=== PATIENT | female | born 1985 | race Caucasian/White ===

== ENCOUNTER → 2016-10-15 | Day surgery (SDC) | payer BC ==
[2016-10-11 09:34] VITALS: Ht 160 cm; Wt 60.0 kg
[~2016-10-15] VITALS: Ht 160 cm; Wt 60.0 kg
[~2016-10-15] MED LIST: ACET-1256 PO; ASPI-390 PO; BCPILLS PO; LIDOCAINE HCL 2% 2 ML VIAL (20MG/ML) ONE; MIDAZOLAM HCL 1 MG/ML 2ML VIAL ONE; ONDANSETRON INJ 2 MG/ML 2 ML VIAL ONE; PROPOFOL IV EMULSION 10 MG/ML 20 ML VIAL IV ONE; PSYL48.59 PO; SODIUM CHLORIDE 0.9% 500ML 500 ML IV ONE
--- NOTE | 2016-10-15 09:53 | Endo History and Physical ---
History & Physical Date of Service: Oct 15, 2016. Chief Complaint: abdominal pain Referring Physician: Dr.Paul Perez History of Present Illness 31 yo CF who presents for colonoscopy secondary to LLQ abdominal pain. Past Surgical History Hx Cardiac Surgery: No Hx Internal Defibrillator: No Hx Pacemaker: No Hx Abdominal Surgery: No Hx of Implantable Prosthesis: No Hx Post-Op Nausea and Vomiting: No Hx Cancer Surgery: No Hx Thoracic Surgery: No Hx Orthopedic: No Hx Urinary Tract Surgery: No Family History IBD Social History Smoking Status: Never Smoker Hx Substance Use: No Hx Alcohol Use: Yes (OCC SOCIAL) Allergies Coded Allergies: No Known Allergies (Verified , 10/15/16) Current Medications Reported Home Medications Medications Dose Route/Sig Max Daily Dose Days Date Category Tylenol (Acetaminophen) 500 Mg Tab 1,000 Mg PO PRN 10/11/16 Reported Metamucil (Psyllium) 48.57 % Pow 1 Dose PO QAM 10/11/16 Reported Control Pills (Miscellaneous) Tab 1 Tab PO QAM 02/11/08 Reported Vital Signs Weight (Kilograms): 60 Height (Feet): 5 Height (Inches): 3 Date Time Temp Pulse Resp B/P Pulse Ox O2 Delivery O2 Flow Rate FiO2 10/15/16 09:32 36.7 70 16 109/52 100 Room Air Physical Exam General Appearance: WD/WN, no apparent distress Respiratory/Chest: Auscultation: breath sounds normal Cardiovascular: Heart Auscultation: RRR Abdomen: Bowel Sounds: normal Inspection & Palpation: soft, non-distended, no tenderness, guarding & rebound Assessment and Plan Assessment: 31 yo CF who presents for colonoscopy secondary to LLQ abdominal pain. Plan: Proceed with colonoscopy.
--- NOTE | 2016-10-15 10:48 | GI REPORT ---
Procedure Date: 10/15/2016 9:58 AM Procedure: Colonoscopy Indications: Abdominal pain in the left lower quadrant Medicines: Monitored Anesthesia Care Complications: No immediate complications. Estimated Blood Loss: Estimated blood loss: none. Procedure: Pre-Anesthesia Assessment: - Prior to the procedure, a History and Physical was performed, and patient medications and allergies were reviewed. The patient's tolerance of previous anesthesia was also reviewed. The risks and benefits of the procedure and the sedation options and risks were discussed with the patient. All questions were answered, and informed consent was obtained. Prior Anticoagulants: The patient has taken no previous anticoagulant or antiplatelet agents. [ASA Grade]. After reviewing the risks and benefits, the patient was deemed in satisfactory condition to undergo the procedure. After I obtained informed consent, the scope was passed under direct vision. Throughout the procedure, the patient's blood pressure, pulse, and oxygen saturations were monitored continuously. The scope was introduced through the anus and advanced to the terminal ileum. The colonoscopy was performed without difficulty. The patient tolerated the procedure well. The quality of the bowel preparation was good. The terminal ileum, ileocecal valve, appendiceal orifice, and rectum were photographed. Findings: Non-bleeding internal hemorrhoids were found during retroflexion. The hemorrhoids were small. Multiple biopsies were obtained with cold forceps for histology randomly in the sigmoid colon. Impression: - Non-bleeding internal hemorrhoids. - Multiple biopsies were obtained in the sigmoid colon. Recommendation: - Resume previous diet. - Continue present medications. - Repeat colonoscopy for surveillance based on pathology results. - Return to primary care physician as previously scheduled. Patrick Euceda DO 10/15/2016 10:47:29 AM This report has been signed electronically. Note Initiated On: 10/15/2016 9:58 AM
--- NOTE | 2016-10-15 10:49 | Discharge Instructions ---
Endoscopy Patient Instructions Date / Procedure(s) Performed Oct 15, 2016. Colonoscopy Allergy Information Coded Allergies: No Known Allergies (Verified , 10/15/16) Discharge Date / Findings Oct 15, 2016. Internal hemorrhoids Left colon biopsies Medication Instructions Stopped Medication(s): stopped Metamucil Saturday OK to resume all medications today as prescribed. Reported Home Medications Medications Dose Route/Sig Max Daily Dose Days Date Category Tylenol (Acetaminophen) 500 Mg Tab 1,000 Mg PO PRN 10/11/16 Reported Metamucil (Psyllium) 48.57 % Pow 1 Dose PO QAM 10/11/16 Reported Control Pills (Miscellaneous) Tab 1 Tab PO QAM 02/11/08 Reported Provider Instructions Activity Restrictions - No exercising or heavy lifting for 24 hours. - Do not drink alcohol the day of the procedure. - Do not drive a car or operate machinery until the day after the procedure. - Do not make any important decisions or sign important papers in 24 hours after the procedure. Following Day: - Return to full activity which may include returning to work/school. Diet Start your diet with liquids and light foods (jello, soup, juice, toast). Then eat your usual diet if not nauseated. Treatment For Common After Affects For mild abdominal pain, bloating, or excessive gas: - Rest - Eat lightly - Lie on right side Follow-Up Information Follow-up with Dr.Paul Perez as scheduled Anesthesia Information What You Should Know You have had a procedure that required some medicine to reduce anxiety and discomfort. This treatment is called moderate sedation. After receiving the treatment, you may be sleepy, but you will be able to breathe on your own. The effects of the treatment may last for several hours. Follow these instructions along with Activity/Diet recommendations noted above: * Do NOT do anything where dizziness or clumsiness would be dangerous. * Rest quietly at home today, then you can be up and about tomorrow. * Have a responsible person stay with you the rest of today. * You may have had an I.V. today. If so, you may take the dressing off later today. Recommendations Call your doctor if: * Trouble breathing * Continuous vomiting for more than 24 hours * Temperature above 101 degrees * Severe abdominal pain or bloating * Pain not relieved by pain medicine ordered * There is increased drainage or redness from any incision * A large amount of rectal bleeding greater than 2-3 tablespoons. (If you had a polyp/s removed or have hemorrhoids, a small amount of blood - from the rectum is to be expected.) * You have any unanswered questions or concerns. IN THE EVENT OF A SERIOUS EMERGENCY, GO TO THE NEAREST EMERGENCY ROOM Your discharge instructions were prepared by provider Patrick Euceda. Patient Instructions Signature Page Preston Reyna Patient (or Guardian) Signature/Date: I have read and understand the instructions given to me by my caregivers. Caregiver/RN/Doctor Signature/Date: The above-named patient and/or guardian has received patient instructions on this date. + Original Patient Signature Page (only) stays with chart. Please make copy for patient.
--- NOTE | 2016-10-15 11:21 | Anesthesiology Progress Note ---
Anesthesia Post Op Note Date & Time Oct 15, 2016 at 11:20 Vital Signs Pain Intensity: 0 Vital Signs Past 12 Hours Date Time Temp Pulse Resp B/P Pulse Ox O2 Delivery O2 Flow Rate FiO2 10/15/16 10:55 64 20 100/63 100 Room Air 10/15/16 10:44 70 20 97/55 99 Room Air 10/15/16 09:32 36.7 70 16 109/52 100 Room Air Notes Mental Status: alert / awake / arousable, participated in evaluation Pt Amnestic to Procedure: Yes Nausea / Vomiting: adequately controlled Pain: adequately controlled Airway Patency, RR, SpO2: stable & adequate BP & HR: stable & adequate Hydration State: stable & adequate Anesthetic Complications: no major complications apparent
[2016-10-15 11:22] VITALS: BP 102/65; PULSE 63; O2SAT 100
== END | disposition home or self-care (01) ==
LOC: C.GI 09:04
PROVIDERS: ATTEND Internal Medicine
DX: R10.32 Left lower quadrant pain (principal); K64.8 Other hemorrhoids; Z83.79 Family history of other diseases of the digestive system

== ENCOUNTER 2016-10-25 12:22 | Emergency (ER) | payer BC ==
[~2016-10-25] VITALS: Ht 162.6 cm; Wt 59.5 kg
[~2016-10-25 12:22] MED LIST changes: -ASPI-390 PO; -LIDOCAINE HCL 2% 2 ML VIAL (20MG/ML) ONE; -MIDAZOLAM HCL 1 MG/ML 2ML VIAL ONE; -ONDANSETRON INJ 2 MG/ML 2 ML VIAL ONE; -PROPOFOL IV EMULSION 10 MG/ML 20 ML VIAL IV ONE; -SODIUM CHLORIDE 0.9% 500ML 500 ML IV ONE
[2016-10-25 12:25] VITALS: TEMP 36.8; Ht 162.6 cm; Wt 59.5 kg
[2016-10-25] MEDS ORDERED: ASPI-390 PO (12:57)
--- NOTE | 2016-10-25 13:09 | EMERGENCY ROOM VISIT NOTE ---
History Report prepared by Bienvenido: Barb Hoskins Under the Supervision of: Dr. Lore Burrows M.D. First contact with patient: 12:55 Chief Complaint: HEADACHE Stated Complaint: RE-OCCURING HEADACHES History of Present Illness The patient is a 31 year old female who presents to the Emergency Room with complaints of an intermittent headache starting about 2 weeks ago. She describes the headache to be located in the back of her head on the left side and radiates to the front. The patient took Advil and Excedrin without relief. She reports feeling foggy today. The patient normally does not wear glasses and recently started wearing it again. She has been feeling anxiety and stress over an abdominal pain she has been having for the past few weeks. She does not smoke cigarettes. She has a history of migraine headache occurring many years ago. She reports it is the longest duration of a headache she has had. The patient denies a family history of brain problems or blood clots. She denies fevers, chills, light sensitivity, neck pain, nausea, numbness, weakness, or any other complaints. Source of History: patient Onset: about 2 weeks ago Position: head Timing: intermittent Modifying Factors (Relieving): other (Advil and Excedrin without relief) Associated Symptoms: No chills, No fevers, No nausea, No numbness, No weakness Review of Systems See HPI for pertinent positives & negatives. A total of 10 systems reviewed and were otherwise negative. Past Medical & Surgical Medical Problems: (1) Migraine headache (2) UTI (urinary tract infection) Family History Cancer Social History Smoking Status: Never Smoker Marital Status: Housing Status: lives with family Occupation Status: employed Current/Historical Medications Scheduled Acetaminophen (Tylenol), 1,000 MG PO PRN Control Pills ( Control Pills), 1 TAB PO QAM Psyllium (Metamucil), 1 DOSE PO QAM Miscellaneous Medications Eselexu-Hqmvxgmwnotys-Yitcenge (Excedrin Migraine), 1 TAB PO Allergies Coded Allergies: No Known Allergies (Verified , 10/25/16) Physical Exam Vital Signs Date Time Temp Pulse Resp B/P Pulse Ox O2 Delivery O2 Flow Rate FiO2 10/25/16 14:07 62 18 101/59 100 Room Air 10/25/16 12:25 36.8 96 18 137/75 99 Room Air Physical Exam CONSTITUTIONAL: Mild distress HEENT: No icterus, moist mucous membranes NECK: No meningismus, trachea is midline. CARDIOVASCULAR: Regular rate, normal perfusion RESPIRATORY: Unlabored breathing. Clear to auscultation. GASTROINTESTINAL: Non-tender GENITOURINARY: No flank tenderness MUSCULOSKELETAL: Full range of motion NEUROLOGIC: No acute gross focal deficits. PSYCHIATRIC: Normal affect SKIN: Normal for ethnicity. Medical Decision & Procedures ER Provider Diagnostic Interpretation: CT results as stated below per my review and radiologist interpretation. CT HEAD WITHOUT CONTRAST (CT) CLINICAL HISTORY: Posterior headache. May leads. COMPARISON STUDY: No previous studies for comparison. TECHNIQUE: Axial CT of the brain is performed from the vertex to the skull base. IV contrast was not administered for this examination. CT DOSE: 537.48 mGy.cm FINDINGS: No intra or extra-axial mass lesions are visualized. There is no CT evidence of acute cortical infarction. There is no evidence of midline shift. There is no acute hemorrhage. No calvarial fractures are visualized. There is no evidence of pathologic ventricular dilatation. There is no evidence of acute sinusitis IMPRESSION: Normal noncontrast head CT. Electronically signed by: Piero Ca M.D. 10/25/2016 2:01 PM Dictated Date/Time: 10/25/2016 2:01 PM Laboratory Results 10/25/16 13:25 Red Blood Count 4.92, Mean Corpuscular Volume 91.9, Mean Corpuscular Hemoglobin 30.5, Mean Corpuscular Hemoglobin Concent 33.2, Mean Platelet Volume 9.3, Neutrophils (%) (Auto) 87.8, Lymphocytes (%) (Auto) 8.4, Monocytes (%) (Auto) 3.3, Eosinophils (%) (Auto) 0.0, Basophils (%) (Auto) 0.1, Neutrophils # (Auto) 8.84, Lymphocytes # (Auto) 0.85, Monocytes # (Auto) 0.33, Eosinophils # (Auto) 0.00, Basophils # (Auto) 0.01 10/25/16 13:25 Test 10/25/16 13:25 White Blood Count 10.07 K/uL (4.8-10.8) Red Blood Count 4.92 M/uL (4.2-5.4) Hemoglobin 15.0 g/dL (12.0-16.0) Hematocrit 45.2 % (37-47) Mean Corpuscular Volume 91.9 fL (80-100) Mean Corpuscular Hemoglobin 30.5 pg (25-34) Mean Corpuscular Hemoglobin Concent 33.2 g/dl (32-36) Platelet Count 217 K/uL (130-400) Mean Platelet Volume 9.3 fL (7.4-10.4) Neutrophils (%) (Auto) 87.8 % Lymphocytes (%) (Auto) 8.4 % Monocytes (%) (Auto) 3.3 % Eosinophils (%) (Auto) 0.0 % Basophils (%) (Auto) 0.1 % Neutrophils # (Auto) 8.84 K/uL (1.4-6.5) Lymphocytes # (Auto) 0.85 K/uL (1.2-3.4) Monocytes # (Auto) 0.33 K/uL (0.11-0.59) Eosinophils # (Auto) 0.00 K/uL (0-0.5) Basophils # (Auto) 0.01 K/uL (0-0.2) RDW Standard Deviation 44.0 fL (36.4-46.3) RDW Coefficient of Variation 13.0 % (11.5-14.5) Immature Granulocyte % (Auto) 0.4 % Immature Granulocyte # (Auto) 0.04 K/uL (0.00-0.02) Urine Color YELLOW Urine Appearance CLEAR (CLEAR) Urine pH 5.5 (4.5-7.5) Urine Specific [place] 1.001 (1.000-1.030) Urine Protein NEG (NEG) Urine Glucose (UA) NEG (NEG) Urine Ketones NEG (NEG) Urine Occult Blood NEG (NEG) Urine Nitrite NEG (NEG) Urine Bilirubin NEG (NEG) Urine Urobilinogen NEG (NEG) Urine Leukocyte Esterase NEG (NEG) Anion Gap 11.0 mmol/L (3-11) Est Creatinine Clear Calc Drug Dose 77.4 ml/min Estimated GFR () 97.4 Estimated GFR (Non- 84.1 BUN/Creatinine Ratio 17.8 (10-20) Calcium Level 9.5 mg/dl (8.5-10.1) Magnesium Level 2.3 mg/dl (1.8-2.4) Human Chorionic Gonadotropin, Qual NEG (NEG) Labs reviewed by ED physician. Medications Administered Medications (Trade) Dose Ordered Sig/Deandre Route Start Time Stop Time Status Last Admin Dose Admin Acetaminophen (Tylenol Tab) 1,000 mg NOW STAT PO 10/25/16 13:10 10/25/16 13:12 DC 10/25/16 13:29 1,000 MG Ketorolac Tromethamine (Toradol Inj) 60 mg NOW STAT IM 10/25/16 13:10 10/25/16 13:12 DC 10/25/16 13:30 60 MG ED Course 1255: Past medical records reviewed. The patient was evaluated in room C11B. A complete history and physical examination was performed. 1310: Toradol Inj 60 mg IM, Tylenol Tab 1000 mg PO 1533: Upon reexamination the patient is resting comfortably. I discussed results and treatment plan with the patient. She verbalizes agreement and understanding. The patient is ready for discharge. Medical Decision Differential diagnosis includes but is not limited to tension headache, intracranial pathology, electrolyte abnormality. 31-year-old presents into the emergency department for evaluation of 2 weeks of waxing and waning predominantly posterior diffuse headaches without other focal neurologic complaints. She is on control but does not smoke. There is a family history of thromboembolic or neurologic disease. She took Advil 400 mg without adequate relief. CT scan head in the ER was subsequently normal as well as lab work. Patient requests Aleve at 3:30 PM on reexamination appears no acute distress. She was advised to take Tylenol 600 mg Motrin 600 mg every 6 hours and to return to emergency room for any worsening or worrisome symptoms. Impression Primary Impression: Headache Scribe Attestation The scribe's documentation has been prepared under my direction and personally reviewed by me in its entirety. I confirm that the note above accurately reflects all work, treatment, procedures, and medical decision making performed by me. Departure Information Dispostion Home / Self-Care Referrals No Doctor, Assigned (PCP) Forms HOME CARE DOCUMENTATION FORM, IMPORTANT VISIT INFORMATION Patient Instructions Headache Pain, My [facility] [place] [facility] Additional Instructions Take Tylenol 650mg and Motrin 600mg every 6 hours as needed for pain.
[2016-10-25] MEDS ORDERED: ACETAMINOPHEN 500 MG TAB PO STA (13:10)
[2016-10-25] MEDS ORDERED: KETOROLAC TROMETHAMINE 30 MG/ML VIAL IM STA (13:10)
--- NOTE | 2016-10-25 14:03 | DIAGNOSTIC IMAGING REPORT ---
CT HEAD WITHOUT CONTRAST (CT) CLINICAL HISTORY: Posterior headache. May leads. COMPARISON STUDY: No previous studies for comparison. TECHNIQUE: Axial CT of the brain is performed from the vertex to the skull base. IV contrast was not administered for this examination. CT DOSE: 537.48 mGy.cm FINDINGS: No intra or extra-axial mass lesions are visualized. There is no CT evidence of acute cortical infarction. There is no evidence of midline shift. There is no acute hemorrhage. No calvarial fractures are visualized. There is no evidence of pathologic ventricular dilatation. There is no evidence of acute sinusitis IMPRESSION: Normal noncontrast head CT. Electronically signed by: Piero Ca M.D. 10/25/2016 2:01 PM Dictated Date/Time: 10/25/2016 2:01 PM
[2016-10-25 14:04] LABS: BASO % 0.1 %; BASO ABS # 0.01 K/uL (0-0.2); COMPLETE YES; HEMATOCRIT 45.2 % (37-47); IG% 0.4 %; LYMPH % 8.4 %; LYMPH ABS # 0.85 K/uL (1.2-3.4); MEAN CELL VOLUME 91.9 fL (80-100); MEAN CORPUSCULAR HEMOGLOBIN 30.5 pg (25-34); MEAN CORPUSCULAR HGB CONC 33.2 g/dl (32-36); MEAN PLATELET VOLUME 9.3 fL (7.4-10.4); MONO % 3.3 %; NEUT % 87.8 %; PLATELET COUNT 217 K/uL (130-400); RED BLOOD COUNT 4.92 M/uL (4.2-5.4); WHITE BLOOD COUNT 10.07 K/uL (4.8-10.8)
[2016-10-25 14:05] LABS: URINE APPEARANCE CLEAR (CLEAR); URINE BILIRUBIN NEG (NEG); URINE COLOR YELLOW; URINE NITRITE NEG (NEG); URINE PH 5.5 (4.5-7.5); URINE SPECIFIC GRAVITY 1.001 (1.000-1.030); UROBILINOGEN NEG (NEG); ZZUR CULT IF INDIC CLEAN CATCH NO
[2016-10-25 14:14] LABS: MANUAL MICROSCOPIC REQUIRED? NO; REVIEW REQ? NO
[2016-10-25 14:28] LABS: CREATININE 0.91 mg/dl (0.60-1.20)
[2016-10-25 14:29] LABS: BUN/CREATININE RATIO 17.8 (10-20); CALCIUM 9.5 mg/dl (8.5-10.1); MAGNESIUM 2.3 mg/dl (1.8-2.4); POTASSIUM 3.9 mmol/L (3.5-5.1)
[2016-10-25 14:40] LABS: PREG INTERNAL NEGATIVE QC NEG CLEAR BACKGROUND; PREG INTERNAL POSITIVE QC POS CONTROL LINE
[2016-10-25 15:37] VITALS: BP 101/59; PULSE 62; O2SAT 100
== END 2016-10-25 15:38 | disposition home or self-care (01) ==
LOC: C.EDB 12:24 → C.EDC 15:38
DX: R51 Headache (principal); Z79.3 Long term (current) use of hormonal contraceptives